=== PATIENT | female | born 1975 | race Caucasian/White ===

== ENCOUNTER → 2016-03-31 | Outpatient (REF) | payer BC | END | disposition home or self-care (01) | LOC: M LAB REF 16:56 | PROVIDERS: ATTEND Advanced Practice Midwife | DX: Z34.83 Encounter for supervision of other normal pregnancy, third trimester (principal); Z36 Encounter for antenatal screening of mother; Z3A.00 Weeks of gestation of pregnancy not specified ==

== ENCOUNTER 2016-05-01 11:11 | Inpatient (IN) | payer BC ==
[~2016-05-01] VITALS: Ht 167.6 cm; Wt 78.0 kg
[2016-05-01] VITALS (45 sets, daily range): BP systolic 88–188; BP diastolic 50–131
[2016-05-01] MEDS ORDERED: LR 1,000 ML IV SCH (12:00)
[2016-05-01] MEDS ORDERED: LACTATED RINGER'S 1000 ML IV ONE (12:00)
[2016-05-01] MEDS ORDERED: PRENTAB9 PO (12:15)
[2016-05-01 12:28] LABS: MEAN CORPUSCULAR HEMOGLOBIN 31.5 pg (27.0-33.0); MEAN CORPUSCULAR HGB CONC 34.3 g/dl (32.0-36.5); MEAN CORPUSCULAR VOLUME 91.8 fl (80.0-96.0); RED CELL DISTRIBUTION WIDTH 13.1 % (11.5-14.5)
[2016-05-01] MEDS ORDERED: FENTANYL 2MCG/ML ROPIVACAINE 0.2% NACL 250 ML CADD As Ordered ONE (13:24)
--- NOTE | 2016-05-01 14:27 | HPEPDOC ---
Obstetrical History & Physical General Date of Admission May 01, 2016 at 11:37 History of Present Illness Patient is a 40-year-old female who is a 1 para 0 at 40 weeks 6 days with an EDC of 04/25/2016 based on her LMP and consistent with her first trimester ultrasound. She presents to labor and delivery with spontaneous rupture of membranes. Rupture of membranes occurred at 0900. Patient reports clear fluid. Patient reports regular contractions. She [facility] [place] in her first trimester and transferred her care to a woman's perspective. Her has been uncomplicated. 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 Patient has not had an outbreak since she was 19 years old. Reports active movement. Denies vaginal bleeding. Chief Complaint: Active Labor, Rupture of membranes Information Provided By: Patient Age: 40 : 1 Care Care: Good Care Dating Final EDC: Apr 25, 2016 Final EDC by: LMP LMP: Jul 21, 2015 EGA at Admission: 40.6 Antepartum Course Height (inches): 66 Pre- weight (lbs.): 153 Admission Weight (lbs.): 172 Change in Weight (lbs.): 19 Past Medical History Past Obstetrical History : Past Obstetrical History: [employer] History: Herpes simplex virus(HSV) (HSV II) Past Medical History Medical History Asthma that's exercise-induced, seasonal allergies, chickenpox as a child. Surgical History: Other (elbow at 14 years old) Family History Significant Family History: Diabetes (mother) Social History Marital Status: Family situation: Spouse/partner home Alcohol: denies Drugs: denies Abuse Violence Screening Have you been hit/kicked/slapp: No Have you been sexually assault: No Imunizations Tdap status: current Allergies Coded Allergies: No Known Allergies (Unverified , 05/01/16) Medications Scheduled Multivitamins/ ( 27-0.8 mg) 1 Tab Tab 1 TAB PO DAILY Physical Examination Physical Examination GENERAL: Alert and oriented times three. BREAST: . ABDOMEN: Gravid and non-tender to touch. FETUS: Is vertex (VTX) by sterile vaginal examination (SVE), fetus is vertex ( VTX) by Adin. HEART RATE: Regular rate and rhythm. LUNGS: Clear to auscultation (CTA). EXTREMITIES: No edema. No clonus. Deep tendon reflexes (DTRs) + 2. Laboratory Data 24H LABS Laboratory Tests 2 05/01/16 12:00: Serology Scanned Report Hepatitis B Testing 05/01/16 12:08: CBC/BMP Laboratory Tests 05/01/16 12:08 Red Blood Count 4.12, Mean Corpuscular Volume 91.8, Mean Corpuscular Hemoglobin 31.5, Mean Corpuscular Hemoglobin Concent 34.3, Red Cell Distribution Width 13.1 Pertinent Laboratoy Data Blood Type: A+ RBC Antibody Screen: Negative HIV: Negative Hepatitis B: Negative Hepatitis C: Negative Rapid Plasma Reagin: Nonreactive Rubella: Immune Varicella: Immune Chlamydia/Gonorrhea: Negative Group B Streptococcus: Negative Quad Screen Test: Negative Glucose Tolerance Test: 113 Steroid Therapy Steroid Therapy: No Vaginal Examination Dilation: 4 cm Effacement: Other (100%) Station: -2 Presentation: Cephalic presentation Position: Vertex (occiput) Assessment Variability: Moderate Accelerations: Positive Decelerations: None Tocometer Contractions: Yes Frequency: regular, every 2-4 min. Duration: greater than 60 seconds Strength: palpated as moderate Multi-drug resistant Organism: No history of MDRO Assessment/Plan Assessment IUP at 40 weeks 6 days gestation, spontaneous rupture of membranes, active labor , category 1 tracing. Plan Admit to labor and delivery. Diet: Regular. Out of bed as tolerated. Group B Streptococcus (GBS) negative. Labs and intravenous (IV) per unit protocol. Lactated Ringers (LR): Bolus 800 mL, then saline lock. Reviewed options for pain management with patient if she desires. Anticipate cervical change and normal spontaneous delivery (). Dr. Boyle aware of plan of care. BETH RAMAN CNM May 01, 2016 14:27
[2016-05-01] MEDS ORDERED: ONDANSETRON 4MG/2ML VIAL (J2405) IV PRN (14:30)
[2016-05-01] MEDS ORDERED: EPIDURAL/PCA KEYS XX PRN (14:30)
[2016-05-01] MEDS ORDERED: NALOXONE INJ 0.4 MG/1 ML VIAL (J2310) IV PRN (14:30)
[2016-05-01] MEDS ORDERED: LACTATED RINGER'S 1000 ML IV PRN (14:30)
[2016-05-01] MEDS ORDERED: FENTANYL/ROPIVACAINE/NACL CADD 250 ML EPIDURAL SCH (14:30)
[2016-05-01] MEDS ORDERED: diphenhydrAMINE INJ 50MG/ML VIAL (J1200) IV PRN (14:30)
[2016-05-01] MEDS ORDERED: EPIDURAL COMMENT XX SCH (14:30)
[2016-05-01] MEDS ORDERED: REFRIGERATOR IV KEYS XX PRN (14:30)
[2016-05-01] MEDS ORDERED: ePHEDrine SULFATE 25 MG/5 ML(5MG/ML) SYRINGE IV PRN (14:30)
--- NOTE | 2016-05-01 16:49 | IPNPDOC ---
Date Seen The patient was seen on 05/01/16 @ 1640 Progress Note SUBJECTIVE: Patient reports she is comfortable with her epidural. OBJECTIVE: heart rate baseline 120, moderate variability, positive accelerations, no decelerations. Contractions every 1-3 minutes. VITAL SIGNS: See below. ASSESSMENT: IUP at 40 weeks 6 days gestation, active labor, category 1 heart rate tracing. PLAN: Continue monitoring. Anticipate cervical change. Anticipate vaginal delivery. VS, I&O, 24H, Fishbone VS, I&O, 24H, Fishbone Laboratory Tests 2 05/01/16 12:00: Serology Scanned Report Hepatitis B Testing 05/01/16 12:08: Laboratory Tests 05/01/16 12:08 Red Blood Count 4.12, Mean Corpuscular Volume 91.8, Mean Corpuscular Hemoglobin 31.5, Mean Corpuscular Hemoglobin Concent 34.3, Red Cell Distribution Width 13.1 Vital Signs Label Value Date Time Pulse 68 05/01/16 1634 Blood Pressure Assessment 97/54 (68) 05/01/16 1634 Source Automatic Cuff (NIBP) BETH RAMAN CNM May 01, 2016 16:44
[2016-05-01] MEDS ORDERED: OXYTOCIN 30 UNITS IN 0.9% NaCl 500ML IV BAG (J2590) As Ordered ONE (18:32)
[2016-05-01] MEDS ORDERED: RHOGAM 300 MCG (1500 IU) INJ (J2790) IM SCH (21:00)
[2016-05-01] MEDS ORDERED: DOCUSATE SODIUM 100 MG CAP PO PRN (21:00)
[2016-05-01] MEDS ORDERED: DIBUCAINE 1% OINTMENT 30GM TOP PRN (21:00)
[2016-05-01] MEDS ORDERED: MEASLES,MUMPS,RUBELLA VACCINE INJ (MMR-II) (90707) SC SCH (21:00)
[2016-05-01] MEDS ORDERED: ACETAMINOPHEN 500 MG TAB PO PRN (21:00)
[2016-05-01] MEDS ORDERED: ANUSOL HC CREAM 30GM TOP PRN (21:00)
[2016-05-01] MEDS ORDERED: OXYTOCIN DRIP 30 UNITS in APPROPRIATE DILUENT 1 EA IV SCH (21:00)
[2016-05-01] MEDS ORDERED: METHYLERGONOVINE MALEATE 0.2 MG TAB PO PRN (21:00)
--- NOTE | 2016-05-01 21:15 | DNPDOC ---
Delivery Note Delivery Note Patient is a 40-year-old female now a G 1 P 1001 at 40 weeks 6 days gestation who presented to labor and delivery in active labor and with spontaneous rupture of membranes. She obtained an epidural for pain management. She progressed to fully dilated at 182. Patient pushed to a spontaneous vaginal delivery at 192 to a living male in the OA position with restitution to LOT. No nuchal cord. Shoulders delivered with ease and the corpus immediately followed. Baby placed on maternal abdomen crying and active. Cord clamped 2 and cut by father of the baby after pulsation ceased. Cord blood obtained. Spontaneous delivery of intact placenta with a three-vessel cord by Frazier mechanism at 1939. Uterine hemostasis achieved by rapid infusion of IV Pitocin and uterine fundal massage. Perineum and vagina inspected and found to have a second-degree perineal laceration that was repaired with a 3. [address] -1, bilateral labial abrasions with the right labial abrasion repaired with a 4. 0 Vicryl Rapide. EBL 450. 's 9/9. Weight 4070 g, 9 pounds. Senatobia's name is Terrell and is breast-feeding. Dr. Boyle aware of delivery. BETH RAMAN CNM May 01, 2016 21:15
[2016-05-01] MEDS ORDERED: diphenhydrAMINE INJ 50MG/ML VIAL (J1200) IV ONE (21:30)
[2016-05-02 06:03] VITALS: BP 126/67
[2016-05-02] MEDS: PRENATAL VITAMIN TAB PO SCH (08:18)
--- NOTE | 2016-05-02 10:48 | IPNPDOC ---
Date Seen The patient was seen on 05/02/16 @ 1040. Progress Note SUBJECTIVE: Patient reports she is doing well. with minimal difficulty. Voiding without difficulty. OBJECTIVE: PHYSICAL EXAMINATION: VITAL SIGNS: Please see below. RESPIRATORY: Respirations regular. No use of accessory muscles. ABDOMINAL: Fundus firm at umbilicus. Perineum: Lochia moderate bright red. Minimal perineal swelling. EXTREMITIES: Generalized edema. NEUROLOGICAL: A+Ox3 ASSESSMENT: Day 1 , vaginal delivery PLAN: Continue supportive nursing care and support. Anticipate discharge to home tomorrow. VS, I&O, 24H, Fishbone VS, I&O, 24H, Fishbone Vital Signs Date Time Temp Pulse Resp B/P Pulse Ox O2 Delivery O2 Flow Rate FiO2 05/02/16 06:03 96.9 80 18 126/67 05/01/16 15:01 100 I&O- Last 24 Hours up to 6 AM 05/02/16 06:00 Intake Total 1473 ml Output Total 1850 ml Balance -377 ml Laboratory Tests 2 05/01/16 12:00: Serology Scanned Report Hepatitis B Testing 05/01/16 12:08: Laboratory Tests 05/01/16 12:08 Red Blood Count 4.12, Mean Corpuscular Volume 91.8, Mean Corpuscular Hemoglobin 31.5, Mean Corpuscular Hemoglobin Concent 34.3, Red Cell Distribution Width 13.1 BETH RAMAN CNM May 02, 2016 10:48
[2016-05-02] MEDS: IBUPROFEN 800 MG TAB PO PRN ×2 (14:32→22:09)
[2016-05-02 18:00] VITALS: BP 118/54
[2016-05-03 05:27] VITALS: BP 118/64
[2016-05-03] MEDS: PRENATAL VITAMIN TAB PO SCH (08:04)
[2016-05-03] MEDS: IBUPROFEN 800 MG TAB PO PRN (11:24)
[2016-05-03] MEDS ORDERED: ACET50TA PO (13:50)
[2016-05-03] MEDS ORDERED: MOTR200T44 PO (13:52)
== END 2016-05-03 17:40 | disposition home or self-care (01) | DRG 560 ==
LOC: M LDO 11:11 → M LDI 11:37 → M OBS 22:27
PROVIDERS: ADMIT Obstetrics & Gynecology; ATTEND Obstetrics & Gynecology
PROC: 10E0XZZ Delivery of Products of Conception, External Approach (ICD-10-PCS; principal; 2016-05-01)
PROC: 0KQM0ZZ Repair Perineum Muscle, Open Approach (ICD-10-PCS; 2016-05-01)
DX: O48.0 Post-term pregnancy (principal); O70.1 Second degree perineal laceration during delivery; Z3A.40 40 weeks gestation of pregnancy; Z37.0 Single live birth

== ENCOUNTER → 2016-10-05 | Outpatient (REF) | payer OTHER ==
[~2016-10-05] MED LIST: ACET50TA PO; MOTR200T44 PO; PRENTAB9 PO
== END ==
LOC: M LAB REF 17:26
PROVIDERS: ATTEND Advanced Practice Midwife
DX: Z01.419 Encounter for gynecological examination (general) (routine) without abnormal findings (principal); Z11.51 Encounter for screening for human papillomavirus (HPV)

== ENCOUNTER → 2016-10-27 | Outpatient (REF) | payer OTHER ==
[2016-10-30 00:07] LABS: Lyme Disease IgG/IgM Antibodie <0.91 ISR (0.00-0.90); Lyme Disease IgM Ab Quantitati <0.80 index (0.00-0.79)
== END ==
LOC: M SFHCCLAY 14:12
PROVIDERS: ATTEND Nurse Practitioner Family
DX: R52 Pain, unspecified (principal)

== ENCOUNTER → 2017-04-11 | Outpatient (CLI) | payer OTHER | LOC: M RAD 09:43 | DX: Z36.2 Encounter for other antenatal screening follow-up (principal) ==

== ENCOUNTER → 2017-05-02 | Outpatient (CLI) | payer OTHER | LOC: M SMT 10:43 | DX: Z36.0 Encounter for antenatal screening for chromosomal anomalies (principal); Z3A.23 23 weeks gestation of pregnancy ==

== ENCOUNTER → 2017-05-02 | Outpatient (CLI) | payer OTHER | LOC: M RAD 08:40 | DX: Z36.2 Encounter for other antenatal screening follow-up (principal) ==

== ENCOUNTER → 2019-03-16 | Outpatient (REF) | payer OTHER ==
[~2019-03-16] MED LIST changes: -ACET50TA PO; +MAPA500T2 PO; +OSEL75CA PO; +ZOFR4TAB14 PO
== END ==
LOC: M SFHCWAGY 17:23
PROVIDERS: ATTEND Advanced Practice Midwife
DX: Z12.4 Encounter for screening for malignant neoplasm of cervix (principal)
CPT/HCPCS: 87624; G0123

== ENCOUNTER → 2019-08-09 | Outpatient (CLI) | payer OTHER ==
--- NOTE | 2019-08-10 08:04 | REPMRS ---
Patient History The patient states she had a clinical breast exam in February 2019. Patient had first child at age 40. No known family history of cancer. Digital Woman Screen Mammo: August 09, 2019 - Exam #: [id number] Bilateral CC and MLO view(s) were taken. Technologist: Amarilis Payton, Technologist No prior studies available for comparison. FINDINGS: The breast tissue is heterogeneously dense. This may lower the sensitivity of mammography. The Volpara volumetric breast density category is: C. There is no evidence of dominant mass, architectural distortion, or grouped microcalcification typical of malignancy. 3-D tomosynthesis shows no additional findings. Assessment: BI-RADS/ACR category 1 mammogram. Negative Mammogram. Recommendation Routine screening mammogram of both breasts in 1 year (for women over age 40). This patient's Lifetime Breast Cancer RIsk is estimated at 14.9 %. This mammogram was interpreted with the aid of an FDA-approved computer-aided dectection system. Electronically Signed By: Jasvir Pillai MD 08/10/19 0803
== END ==
LOC: M WHC 16:24
PROVIDERS: ATTEND Advanced Practice Midwife
DX: Z12.31 Encounter for screening mammogram for malignant neoplasm of breast (principal)

== ENCOUNTER 2019-12-10 14:30 | Emergency (ER) | payer OTHER ==
[~2019-12-10] VITALS: Ht 165.1 cm; Wt 72.0 kg
[2019-12-10] MEDS ORDERED: ESCI10TA2 (14:37)
[2019-12-10] MEDS ORDERED: NS 1,000 ML IV ONE (15:30)
[2019-12-10] MEDS ORDERED: MECLIZINE 25 MG TABLET PO ONE (15:30)
[2019-12-10 16:25] LABS: HEMATOCRIT 40.9 % (36.0-47.0); HEMOGLOBIN 13.5 g/dl (12.0-15.5); MEAN CORPUSCULAR HEMOGLOBIN 30.5 pg (27.0-33.0); MEAN CORPUSCULAR VOLUME 92.5 fl (80.0-96.0); PLATELET COUNT, AUTOMATED 190 10^3/uL (150-450); RED BLOOD COUNT 4.42 10^6/uL (4.00-5.40); WHITE BLOOD COUNT 3.8 10^3/uL (4.0-10.0)
[2019-12-10 16:57] LABS: ATYPICAL LYMPH 10 % (0-5); BASOPHILS 1 % (0-1); EOSINOPHILS 1 % (0-3); LYMPHOCYTES 34 % (16-44); MONOCYTES 10 % (0-5); NEUTROPHILS 42 % (28-66)
[2019-12-10 16:58] LABS: PLATELET ESTIMATE NORMAL (NORMAL)
[2019-12-10 17:13] LABS: ACETAMINOPHEN LEVEL < 2.0 UG/ML (10.0-30.0); ALBUMIN 3.7 GM/DL (3.2-5.2); ALT/SGPT 27 U/L (12-78); BILIRUBIN,DIRECT < 0.1 MG/DL (0.0-0.2); BILIRUBIN,TOTAL 0.3 MG/DL (0.2-1.0); BLOOD UREA NITROGEN 14 MG/DL (7-18); CALCIUM LEVEL 8.5 MG/DL (8.5-10.1); CARBON DIOXIDE LEVEL 30 MEQ/L (21-32); CHLORIDE LEVEL 107 MEQ/L (98-107); CK-MB VALUE MASS < 1.0 NG/ML (<3.6); CPK CREATINE PHOSPHOKINASE 74 U/L (26-192); CREATININE FOR GFR 0.86 MG/DL (0.55-1.30); ETHYL ALCOHOL (ETHANOL) < 0.003 % (0.000-0.010); GLOMERULAR FILTRATION RATE > 60.0 (>58); GLUCOSE, FASTING 80 MG/DL (70-100); MB/CK RELATIVE INDEX 1.35 (< OR =4); POTASSIUM SERUM 3.7 MEQ/L (3.5-5.1); SALICYLATE LEVEL < 1.7 MG/DL (5.0-30.0); SODIUM LEVEL 142 MEQ/L (136-145); TOTAL PROTEIN 7.2 GM/DL (6.4-8.2); TROPONIN I < 0.02 NG/ML (< 0.10)
[2019-12-10 17:47] LABS: HCG, SERUM QUALITATIVE NEGATIVE (NEGATIVE)
--- NOTE | 2019-12-10 18:06 | REPVR ---
PROCEDURE INFORMATION: Exam: CT Head Without Contrast Exam date and time: 12/10/2019 3:16 PM Age: 44 years old Clinical indication: Altered mental status/memory loss TECHNIQUE: Imaging protocol: Computed tomography of the head without contrast. Radiation optimization: All CT scans at this facility use at least one of these dose optimization techniques: automated exposure control; mA and/or kV adjustment per patient size (includes targeted exams where dose is matched to clinical indication); or iterative reconstruction. COMPARISON: No relevant prior studies available. FINDINGS: Brain: Normal. No hemorrhage. Unremarkable white matter. No mass effect. Ventricles: No ventriculomegaly. Bones/joints: Unremarkable. No acute fracture. Paranasal sinuses: Visualized sinuses are unremarkable. No fluid levels. Mastoid air cells: Visualized mastoid air cells are well aerated. Soft tissues: Unremarkable. IMPRESSION: No acute intracranial abnormality. Electronically signed by: Zhen Patten On 12/10/2019 18:06:12 PM
[2019-12-10] MEDS ORDERED: MECL1TAB31 PO (18:27)
[2019-12-10 18:41] VITALS: BP 103/67
--- NOTE | 2019-12-19 16:28 | ECGEPIP ---
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
== END 2019-12-10 19:19 | disposition home or self-care (01) ==
LOC: M ED 14:30
DX: R42 Dizziness and giddiness (principal); R53.1 Weakness; Z79.899 Other long term (current) drug therapy; Z91.018 Allergy to other foods
CPT/HCPCS: 70450; 80048; 80076; 82550; 82553; 84443; 84484; 84703; 85025; 93005; 93041; 94760; 96360; 96361; 99284; G0480

== ENCOUNTER → 2020-04-26 | Outpatient (CLI) | payer SELFPAY ==
[~2020-04-26] MED LIST changes: +ESCI10TA16; +MECL1TAB31 PO
== END ==
LOC: M LABSMTC 10:25
PROVIDERS: ATTEND Pediatrics
DX: Z20.822 Contact with and (suspected) exposure to COVID-19 (principal)

== ENCOUNTER → 2020-12-03 | Outpatient (CLI) | payer OTHER ==
--- NOTE | 2020-12-03 11:22 | REP ---
INDICATION: LFT ANTERIOR KNEE PAIN COMPARISON: None. TECHNIQUE: Five views left knee. FINDINGS: There is no evidence of acute fracture, dislocation, or intrinsic bone disease.The joint spaces are unremarkable. There is no radiographic evidence of a significant joint effusion. IMPRESSION: Negative left knee series. <Electronically signed by John Jones > 12/03/20 1112
== END ==
LOC: M CLY 09:43
PROVIDERS: ATTEND Nurse Practitioner Family
DX: M25.562 Pain in left knee (principal)

== ENCOUNTER 2021-02-20 11:23 | Outpatient (CLI) | payer OTHER ==
[~2021-02-20] VITALS: Ht 167.6 cm; Wt 76.8 kg
[~2021-02-20 11:23] MED LIST changes: +ALBUTEROL 90 MCG/ACT 8GM HFA INHALER INH PRN; +ALBUTEROL SULFATE 2.5 MG/0.5 ML INH NEB SOLN INH PRN; +CASIRIVIMAB (REGN10933) 600 MG, IMDEVIMAB (REGN10987) 600 MG in NS 250 ML IV ONE; +EPINEPHrine INJ 1 MG/ML 1ML AMP IM PRN; +NS 1,000 ML IV SCH; +diphenhydrAMINE 50MG/ML VIAL (J1200) IV PRN; +methylPREDNISolone 125MG 2ML VIAL IV PRN
[2021-02-20 11:49] VITALS: BP 106/67
[2021-02-20 12:19] VITALS: BP 105/56
[2021-02-20 12:49] VITALS: BP 105/56
[2021-02-20 13:49] VITALS: BP 104/64
== END 2021-02-20 13:49 | disposition home or self-care (01) ==
LOC: M OPCLI4PR 11:23
PROVIDERS: ATTEND Nurse Practitioner Family
DX: U07.1 COVID-19 (principal)

== ENCOUNTER → 2021-10-15 | Outpatient (REF) | payer OTHER ==
[~2021-10-15] MED LIST changes: -ALBUTEROL 90 MCG/ACT 8GM HFA INHALER INH PRN; -ALBUTEROL SULFATE 2.5 MG/0.5 ML INH NEB SOLN INH PRN; -CASIRIVIMAB (REGN10933) 600 MG, IMDEVIMAB (REGN10987) 600 MG in NS 250 ML IV ONE; -EPINEPHrine INJ 1 MG/ML 1ML AMP IM PRN; -NS 1,000 ML IV SCH; -diphenhydrAMINE 50MG/ML VIAL (J1200) IV PRN; -methylPREDNISolone 125MG 2ML VIAL IV PRN
[2021-10-15 12:05] LABS: BASO # 0.1 10^3/uL (0.0-0.2); BASO % 1.3 % (0.0-1.0); EOS # 0.3 10^3/uL (0.0-0.5); EOS % 3.5 % (0.0-3.0); HEMATOCRIT 39.2 % (36.0-47.0); HEMOGLOBIN 12.9 g/dl (12.0-15.5); LYMPH # 2.6 10^3/uL (1.5-5.0); LYMPH % 36.3 % (24.0-44.0); MEAN CORPUSCULAR HEMOGLOBIN 30.3 pg (27.0-33.0); MEAN CORPUSCULAR HGB CONC 32.9 g/dl (32.0-36.5); MONO # 0.8 10^3/uL (0.0-0.8); MONO % 11.8 % (2.0-8.0); NEUTROPHILS # 3.4 10^3/uL (1.5-8.5); NEUTROPHILS % 46.8 % (36.0-66.0); PLATELET COUNT, AUTOMATED 252 10^3/uL (150-450); RED BLOOD COUNT 4.26 10^6/uL (4.00-5.40); WHITE BLOOD COUNT 7.1 10^3/uL (4.0-10.0)
[2021-10-15 12:27] LABS: ALBUMIN 3.7 GM/DL (3.2-5.2); ALT/SGPT 24 U/L (12-78); BILIRUBIN,TOTAL 0.5 MG/DL (0.2-1.0); BLOOD UREA NITROGEN 10 MG/DL (7-18); CALCIUM LEVEL 9.1 MG/DL (8.5-10.1); CARBON DIOXIDE LEVEL 30 MEQ/L (21-32); CHLORIDE LEVEL 106 MEQ/L (98-107); CHOLESTEROL LEVEL 165 MG/DL (<200); CHOLESTEROL RISK RATIO 1.896 (<5); FREE T4 0.76 NG/DL (0.76-1.46); GLOMERULAR FILTRATION RATE > 60.0 (>58); GLUCOSE, FASTING 94 MG/DL (70-100); HDL CHOLESTEROL 87 MG/DL (>40); LDL CHOLESTEROL 66 MG/DL (<100); NON-HDL-C 78 MG/DL; POTASSIUM SERUM 4.2 MEQ/L (3.5-5.1); SODIUM LEVEL 138 MEQ/L (136-145); TRIGLYCERIDES LEVEL 60 MG/DL (<150)
== END ==
LOC: M SFHCCLAY 07:33
PROVIDERS: ATTEND Nurse Practitioner Family
DX: F32.9 Major depressive disorder, single episode, unspecified (principal); L40.9 Psoriasis, unspecified; Z13.220 Encounter for screening for lipoid disorders

== ENCOUNTER → 2022-03-02 | Outpatient (REF) | payer OTHER | LOC: M SFHCCLAY 16:50 | PROVIDERS: ATTEND Nurse Practitioner Family | DX: R50.9 Fever, unspecified (principal) ==

== ENCOUNTER → 2022-04-13 | Outpatient (CLI) | payer OTHER | LOC: M WHC 08:33 | PROVIDERS: ATTEND Advanced Practice Midwife | DX: Z12.31 Encounter for screening mammogram for malignant neoplasm of breast (principal) ==

== ENCOUNTER → 2022-04-13 | Outpatient (REF) | payer OTHER | LOC: M SFHCWAGY 13:10 | PROVIDERS: ATTEND Advanced Practice Midwife | DX: Z12.4 Encounter for screening for malignant neoplasm of cervix (principal) ==

== ENCOUNTER → 2022-11-23 | Outpatient (CLI) | payer OTHER | LOC: M SOG 08:49 | PROVIDERS: ATTEND Physician Assistant | DX: M25.531 Pain in right wrist (principal); M25.532 Pain in left wrist ==

== ENCOUNTER → 2023-01-11 | Outpatient (REF) | payer OTHER ==
[~2023-01-11] MED LIST changes: +MECL-209 PO; -MECL1TAB31 PO
[2023-01-11 12:17] LABS: BASO # 0.1 10^3/uL (0.0-0.2); BASO % 1.1 % (0.0-1.0); EOS # 0.3 10^3/uL (0.0-0.5); EOS % 3.7 % (0.0-3.0); HEMATOCRIT 38.6 % (36.0-47.0); HEMOGLOBIN 13.1 g/dl (12.0-15.5); LYMPH # 2.2 10^3/uL (1.5-5.0); LYMPH % 26.3 % (24.0-44.0); MEAN CORPUSCULAR HGB CONC 33.9 g/dl (32.0-36.5); MEAN CORPUSCULAR VOLUME 91.5 fl (80.0-96.0); MONO # 0.9 10^3/uL (0.0-0.8); MONO % 10.6 % (2.0-8.0); NEUTROPHILS # 4.9 10^3/uL (1.5-8.5); NEUTROPHILS % 57.9 % (36.0-66.0); PLATELET COUNT, AUTOMATED 316 10^3/uL (150-450); RED BLOOD COUNT 4.22 10^6/uL (4.00-5.40); WHITE BLOOD COUNT 8.4 10^3/uL (4.0-10.0)
[2023-01-11 12:31] LABS: ALBUMIN 3.8 G/DL (3.2-5.2); ALKALINE PHOSPHATASE 43 U/L (46-116); ALT/SGPT 12 U/L (7.0-40); AST/SGOT 11 U/L (<34); BILIRUBIN,TOTAL 0.7 MG/DL (0.3-1.2); BLOOD UREA NITROGEN 10 MG/DL (9-23); CALCIUM LEVEL 9.2 MG/DL (8.5-10.1); CARBON DIOXIDE LEVEL 29 MMOL/L (20-31); CHLORIDE LEVEL 105 MMOL/L (98-107); CREATININE FOR GFR 0.89 MG/DL (0.55-1.30); FREE T4 1.05 NG/DL (0.89-1.76); GLOMERULAR FILTRATION RATE > 60.0 (>58); GLUCOSE, FASTING 103 MG/DL (60-100); POTASSIUM SERUM 4.3 MMOL/L (3.5-5.1); SODIUM LEVEL 139 MMOL/L (136-145); TOTAL PROTEIN 6.8 G/DL (5.7-8.2)
[2023-01-12 14:08] LABS: IgG P18 AB Absent (.); IgG P23 AB Absent (.); IgG P28 AB Absent (.); IgG P30 AB Absent (.); IgG P39 AB Absent (.); IgG P41 AB Present (.); IgG P45 AB Absent (.); IgG P66 AB Absent (.); IgG P93 AB Absent (.); IgM P23 AB Absent (.); IgM P39 AB Absent (.); IgM P41 AB Absent (.); LYME IgG WB INTERPRETATION Negative (.); LYME IgM WB INTERPRETATION Negative (.)
== END ==
LOC: M SFHCCLAY 07:44
PROVIDERS: ATTEND Nurse Practitioner Family
DX: L40.9 Psoriasis, unspecified (principal); F32.9 Major depressive disorder, single episode, unspecified; Z13.220 Encounter for screening for lipoid disorders

== ENCOUNTER → 2023-01-12 | Outpatient (REF) | payer OTHER ==
[2023-01-12 17:55] LABS: C REACTIVE PROTEIN QUANTITATIV < 0.40 MG/DL (<1.0)
[2023-01-12 17:57] LABS: RHEUMATOID FACTOR QUANT < 3.5 IU/ML (<14)
== END ==
LOC: M SFHCCLAY 11:45
PROVIDERS: ATTEND Nurse Practitioner Family
DX: L40.9 Psoriasis, unspecified (principal); R21 Rash and other nonspecific skin eruption

== ENCOUNTER → 2023-04-15 | Outpatient (REF) | payer OTHER | LOC: M SFHCWAGY 12:55 | PROVIDERS: ATTEND Advanced Practice Midwife | DX: Z12.4 Encounter for screening for malignant neoplasm of cervix (principal) | CPT/HCPCS: 87624; G0123 ==

== ENCOUNTER → 2023-04-15 | Outpatient (CLI) | payer OTHER | LOC: M WHC 08:36 | PROVIDERS: ATTEND Advanced Practice Midwife | DX: Z12.31 Encounter for screening mammogram for malignant neoplasm of breast (principal) ==

== ENCOUNTER → 2024-02-13 | Outpatient (REF) | payer OTHER ==
[2024-02-13 18:23] LABS: BASO # 0.1 10^3/uL (0.0-0.2); BASO % 1.2 % (0.0-1.0); EOS # 0.2 10^3/uL (0.0-0.5); EOS % 2.4 % (0.0-3.0); HEMATOCRIT 38.5 % (36.0-47.0); HEMOGLOBIN 12.8 g/dl (12.0-15.5); LYMPH # 2.3 10^3/uL (1.5-5.0); LYMPH % 34.8 % (24.0-44.0); MEAN CORPUSCULAR HEMOGLOBIN 30.3 pg (27.0-33.0); MEAN CORPUSCULAR HGB CONC 33.2 g/dl (32.0-36.5); MEAN CORPUSCULAR VOLUME 91.2 fl (80.0-96.0); MONO # 0.5 10^3/uL (0.0-0.8); MONO % 7.6 % (2.0-8.0); NEUTROPHILS # 3.6 10^3/uL (1.5-8.5); NEUTROPHILS % 53.9 % (36.0-66.0); PLATELET COUNT, AUTOMATED 276 10^3/uL (150-450); RED BLOOD COUNT 4.22 10^6/uL (4.00-5.40); WHITE BLOOD COUNT 6.7 10^3/uL (4.0-10.0)
[2024-02-13 18:45] LABS: ALBUMIN 3.9 G/DL (3.2-5.2); ALKALINE PHOSPHATASE 40 U/L (35-104); ALT/SGPT 12 U/L (7.0-40); AST/SGOT 9 U/L (<34); BILIRUBIN,TOTAL 0.7 MG/DL (0.3-1.2); BLOOD UREA NITROGEN 13 MG/DL (9-23); CALCIUM LEVEL 9.4 MG/DL (8.5-10.1); CARBON DIOXIDE LEVEL 28 MMOL/L (20-31); CHLORIDE LEVEL 106 MMOL/L (98-107); CREATININE FOR GFR 0.85 MG/DL (0.55-1.30); GLOMERULAR FILTRATION RATE > 60.0 (>58); GLUCOSE, FASTING 85 MG/DL (60-100); POTASSIUM SERUM 4.5 MMOL/L (3.5-5.1); SODIUM LEVEL 138 MMOL/L (136-145); TOTAL PROTEIN 7.4 G/DL (5.7-8.2)
[2024-02-13 18:47] LABS: URINE PREG TEST NEGATIVE (NEGATIVE)
[2024-02-13 18:51] LABS: APPEARANCE, URINE HAZY (CLEAR); BACTERIA, URINE AUTO NEGATIVE (NEGATIVE); BILIRUBIN, URINE AUTO NEGATIVE (NEGATIVE); BLOOD, URINE BLOOD 1+ (NEGATIVE); COLOR, URINE YELLOW (YELLOW); GLUCOSE, URINE (UA) AUTO NEGATIVE (NEGATIVE); KETONE, URINE AUTO NEGATIVE (NEGATIVE); LEUKOCYTE ESTERASE, URINE AUTO NEGATIVE (NEGATIVE); MUCUS, URINE SMALL (NEGATIVE); NITRITE, URINE AUTO NEGATIVE (NEGATIVE); PROTEIN, URINE AUTO NEGATIVE (NEGATIVE); RBC, URINE AUTO 2 /HPF (0-3); SPECIFIC GRAVITY URINE AUTO 1.012 (1.002-1.035); SQUAMOUS EPITHELIAL CELL UR AU 4 /HPF (0-6); UROBILINOGEN, URINE AUTO 0.2 mg/dL (0.0-2.0); WBC, URINE AUTO 1 /HPF (0-3)
== END ==
LOC: M SFHCCLAY 11:11
PROVIDERS: ATTEND Nurse Practitioner Family
DX: R10.31 Right lower quadrant pain (principal)

== ENCOUNTER 2024-05-18 10:38 | Day surgery (SDC) | payer OTHER ==
[~2024-05-18] VITALS: Ht 167.6 cm; Wt 73.5 kg
[~2024-05-18 10:38] MED LIST changes: +BETA115CR TOP; +CALC0.0017 TOP; +CLOB0.057 TOP
[2024-05-18] MEDS ORDERED: propofoL 200 MG/20 ML VIAL As Ordered ONE (11:12)
[2024-05-18 11:48] VITALS: TEMP 97.8
[2024-05-18 12:05] VITALS: BP 93/63; O2SAT 98
== END 2024-05-18 12:12 | disposition home or self-care (01) ==
LOC: M OPP 10:38
PROVIDERS: ATTEND Surgery
DX: Z12.11 Encounter for screening for malignant neoplasm of colon (principal); K64.0 First degree hemorrhoids; Z91.048 Other nonmedicinal substance allergy status; Z79.899 Other long term (current) drug therapy

== ENCOUNTER → 2024-06-12 | Outpatient (REF) | payer OTHER ==
[2024-06-14 14:52] LABS: HPV APTIMA Not Detected (Not Detected)
== END ==
LOC: M SFHCWAGY 13:54
PROVIDERS: ATTEND Advanced Practice Midwife
DX: Z12.4 Encounter for screening for malignant neoplasm of cervix (principal)
CPT/HCPCS: 87624; G0123

== ENCOUNTER → 2024-06-12 | Outpatient (CLI) | payer OTHER | LOC: M WHC 09:49 | PROVIDERS: ATTEND Advanced Practice Midwife | DX: Z12.31 Encounter for screening mammogram for malignant neoplasm of breast (principal) ==

== ENCOUNTER → 2024-07-26 | Outpatient (CLI) | payer OTHER | LOC: M PLAIMG 07:05 | PROVIDERS: ATTEND Nurse Practitioner Family | DX: R10.31 Right lower quadrant pain (principal) ==

== ENCOUNTER 2024-12-07 08:02 | Day surgery (SDC) | payer OTHER ==
[~2024-12-07] VITALS: Ht 160 cm; Wt 73.9 kg
[2024-12-07] MEDS ORDERED: LIDOCAINE 2% 100 MG/5 ML SDV (FOR ANES.) As Ordered ONE (08:42)
[2024-12-07] MEDS ORDERED: MIDAZOLAM INJ 2 MG/2 ML VIAL As Ordered ONE (08:43)
[2024-12-07] MEDS: LR 1,000 ML IV SCH (09:01)
[2024-12-07] MEDS ORDERED: DESFLURANE 240 ML INHALANT As Ordered ONE (09:09)
[2024-12-07] MEDS ORDERED: ACETAMINOPHEN 1000MG/100ML IV BAG As Ordered ONE (09:31)
[2024-12-07] MEDS ORDERED: ONDANSETRON 4MG 2ML VIAL As Ordered ONE (09:33)
[2024-12-07] MEDS ORDERED: dexAMETHasone 4 MG/ML 1 ML VIAL As Ordered ONE (09:33)
[2024-12-07] MEDS ORDERED: KETOROLAC 30 MG/ML 1 ML VIAL As Ordered ONE (09:33)
[2024-12-07] MEDS ORDERED: ONDANSETRON 4MG 2ML VIAL IV PRN (09:40)
[2024-12-07 10:52] VITALS: BP 118/65; TEMP 97.3; O2SAT 100
== END 2024-12-07 11:30 | disposition home or self-care (01) ==
LOC: M SDC 08:02
PROVIDERS: ATTEND Orthopaedic Surgery Hand Surgery
DX: G56.01 Carpal tunnel syndrome, right upper limb (principal); L40.9 Psoriasis, unspecified; Z79.899 Other long term (current) drug therapy
CPT/HCPCS: 29848; 81025; J0131; J0665; J1100; J1885; J2250; J2405; J3010